=== PATIENT | male | born 1960 | race Caucasian/White ===

== ENCOUNTER 2019-03-25 20:26 | Emergency (ER) | payer SELFPAY ==
[2019-03-25 21:48] LABS: #Basophils 0.1 thou/uL (0.0-0.2); #Eosinphils 0.3 thou/uL (0.0-0.7); #Lymphocytes 1.4 thou/uL (1.20-3.40); #Monocytes 0.7 thou/uL (0.11-0.59); #Neutrophils 7.6 thou/uL (1.40-6.50); %Basophils 0.8 % (0.0-1.0); %Monocytes 6.5 % (0.0-10.0); %Neutrophils 75.7 % (42.0-75.0); Hemoglobin 15.1 g/dL (14.0-18.0); Mean Corpuscular HGB CONC 31.9 g/dL (32.0-36.0); Mean Corpuscular Hemoglobin 27.9 pg (27.0-31.0); Mean Corpuscular Volume 87.6 fL (78.0-98.0); Mean Platelet Volume 7.7 fL (7.4-10.4); Platelet Count 229 thou/uL (130-400); RBC Distribution Width 12.2 % (11.5-14.5); Red Blood Cell (RBC) Count 5.42 mill/uL (4.70-6.10)
--- NOTE | 2019-03-25 21:49 | RAD ---
EXAM: Portable chest PROVIDED CLINICAL HISTORY: Chest pain COMPARISON: 06/12/2014 FINDINGS: Cardiac and mediastinal silhouette is unchanged in appearance. Median sternotomy changes are again se en. No focal consolidation, pleural fluid or pneumothorax evident. IMPRESSION: No evidence for an acute cardiopulmonary process.
[2019-03-25 22:13] LABS: ALT (SGPT) 19 U/L (8-55); AST (SGOT) 19 U/L (5-34); Albumin 4.1 g/dL (3.5-5.0); Alkaline Phosphatase 85 U/L (40-150); Anion Gap 16 mmol/L (10-20); BUN (Urea Nitrogen) 24 mg/dL (8.4-25.7); Bilirubin, Total 0.4 mg/dL (0.2-1.2); Calc. Creatinine Clearance 0 mL/min (70-130); Calcium 9.2 mg/dL (7.8-10.44); Carbon Dioxide 22 mmol/L (22-29); Chloride 106 mmol/L (98-107); Estimated GFR-MDRD 57; Globulin 2.5 g/dL (2.4-3.5); Glucose 96 mg/dL (70-105); Potassium 4.6 mmol/L (3.5-5.1); Protein, Total 6.6 g/dL (6.0-8.3); Sodium 139 mmol/L (136-145)
--- NOTE | 2019-03-25 22:28 | ULT ---
EXAM: Limited soft tissue ultrasound with Doppler PROVIDED CLINICAL HISTORY: Right groin pain COMPARISON: None FINDINGS: Limited sonographic interrogation was performed of the right inguinal region. The arterial and venous structures in this region appear normal. Color Doppler sonography with spectral analysis demonstrates triphasic flow in the right common femoral and superficial femoral arteries. No evidence for pseudoaneurysm. IMPRESSION: Normal.
--- NOTE | 2019-03-30 13:59 | EKG ---
Test Reason : Blood Pressure : / mmHG Vent. Rate : 068 BPM Atrial Rate : 068 BPM P-R Int : 136 ms QRS Dur : 106 ms QT Int : 388 ms P-R-T Axes : 050 -37 041 degrees QTc Int : 412 ms Sinus rhythm with Premature atrial complexes Left axis deviation Abnormal ECG Confirmed by NOHEMI DUPREE M.D. ([id number]), editor school photograph ANTHONY BERG ([id number]) on 03/30/2019 1:58:55 PM Referred By: Confirmed By:NOHEMI DUPREE M.D.
== END 2019-03-26 01:24 | disposition home or self-care (01) ==
LOC: ERS 20:26
DX: R07.89 Other chest pain (principal); R10.31 Right lower quadrant pain; E78.5 Hyperlipidemia, unspecified; Z86.73 Personal history of transient ischemic attack (TIA), and cerebral infarction without residual deficits; F32.9 Major depressive disorder, single episode, unspecified; Z79.899 Other long term (current) drug therapy; Z79.82 Long term (current) use of aspirin
CPT/HCPCS: 36415; 71045; 76936; 80053; 84484; 85025; 93005

== ENCOUNTER 2019-08-15 22:25 | Emergency (ER) | payer SELFPAY ==
[2019-08-15 23:04] LABS: #Basophils 0.1 thou/uL (0.0-0.2); #Eosinphils 0.4 thou/uL (0.0-0.7); #Monocytes 0.8 thou/uL (0.11-0.59); #Neutrophils 5.7 thou/uL (1.40-6.50); %Eosinophils 4.1 % (0.0-10.0); %Lymphocytes 22.3 % (21.0-51.0); %Monocytes 8.9 % (0.0-10.0); %Neutrophils 63.7 % (42.0-75.0); Hemoglobin 14.6 g/dL (14.0-18.0); Mean Corpuscular HGB CONC 33.4 g/dL (32.0-36.0); Mean Corpuscular Hemoglobin 28.9 pg (27.0-31.0); Mean Corpuscular Volume 86.3 fL (78.0-98.0); Mean Platelet Volume 7.9 fL (7.4-10.4); Platelet Count 218 thou/uL (130-400); RBC Distribution Width 12.2 % (11.5-14.5); Red Blood Cell (RBC) Count 5.07 mill/uL (4.70-6.10); White Blood Cell (WBC) Count 8.9 thou/uL (4.8-10.8)
[2019-08-15 23:21] LABS: ALT (SGPT) 19 U/L (8-55); AST (SGOT) 15 U/L (5-34); Albumin 3.9 g/dL (3.5-5.0); Alkaline Phosphatase 88 U/L (40-110); Anion Gap 15 mmol/L (10-20); BUN (Urea Nitrogen) 22 mg/dL (8.4-25.7); Bilirubin, Total 0.4 mg/dL (0.2-1.2); CK (CPK) 245 U/L (30-200); Calc. Creatinine Clearance 0 mL/min (70-130); Calcium 8.9 mg/dL (7.8-10.44); Carbon Dioxide 22 mmol/L (22-29); Chloride 106 mmol/L (98-107); Estimated GFR-MDRD 70; Globulin 2.4 g/dL (2.4-3.5); Glucose 101 mg/dL (70-105); Potassium 3.9 mmol/L (3.5-5.1); Protein, Total 6.3 g/dL (6.0-8.3); Sodium 139 mmol/L (136-145)
--- NOTE | 2019-08-15 23:26 | RAD ---
Exam: Chest one view HISTORY:Chest pain Comparison: 03/25/2019 FINDINGS: Cardiac silhouette:Cardiomegaly. Sternotomy wires are noted. Aorta: Unremarkable Pulmonary vessels: Normal Costophrenic angles: Clear LUNGS: No masses or consolidation. Pneumothorax: None Osseous abnormalities: None IMPRESSION: No acute cardiopulmonary process. Cardiomegaly. No evidence of congestive heart failure.
== END 2019-08-16 00:45 | disposition home or self-care (01) ==
LOC: ERS 22:25
DX: R07.9 Chest pain, unspecified (principal); E78.5 Hyperlipidemia, unspecified; I25.2 Old myocardial infarction; Z79.899 Other long term (current) drug therapy
CPT/HCPCS: 36415; 71045; 80053; 82550; 84484; 85025; 93005

== ENCOUNTER 2019-09-21 07:40 | Inpatient (IN) | payer OTHER, SELFPAY ==
--- NOTE | 2019-09-21 08:04 | RAD ---
XR Chest 1 View Portable History: Chest pain Comparison: Radiograph August 15, 2019 Findings: Heart size is enlarged. Mild pulmonary venous congestion. No pneumothorax. No effusion. No confluent airspace consolidation. Impression: No acute intrathoracic abnormality.
[2019-09-21 08:19] LABS: #Basophils 0.1 thou/uL (0.0-0.2); #Eosinphils 0.2 thou/uL (0.0-0.7); #Lymphocytes 0.9 thou/uL (1.20-3.40); #Monocytes 0.4 thou/uL (0.11-0.59); %Basophils 0.9 % (0.0-1.0); %Eosinophils 2.8 % (0.0-10.0); %Lymphocytes 13.7 % (21.0-51.0); %Monocytes 6.1 % (0.0-10.0); %Neutrophils 76.6 % (42.0-75.0); Hemoglobin 15.1 g/dL (14.0-18.0); Mean Corpuscular HGB CONC 32.8 g/dL (32.0-36.0); Mean Corpuscular Hemoglobin 28.6 pg (27.0-31.0); Mean Corpuscular Volume 87.2 fL (78.0-98.0); Mean Platelet Volume 8.2 fL (7.4-10.4); Platelet Count 190 thou/uL (130-400); RBC Distribution Width 12.2 % (11.5-14.5); White Blood Cell (WBC) Count 6.6 thou/uL (4.8-10.8)
[2019-09-21 08:43] LABS: ALT (SGPT) 12 U/L (8-55); AST (SGOT) 12 U/L (5-34); Albumin 3.7 g/dL (3.5-5.0); Alkaline Phosphatase 70 U/L (40-110); Anion Gap 13 mmol/L (10-20); BUN (Urea Nitrogen) 16 mg/dL (8.4-25.7); Bilirubin, Total 0.6 mg/dL (0.2-1.2); Calc. Creatinine Clearance 0 mL/min (70-130); Calcium 8.9 mg/dL (7.8-10.44); Carbon Dioxide 22 mmol/L (22-29); Chloride 108 mmol/L (98-107); Estimated GFR-MDRD 85; Globulin 2.5 g/dL (2.4-3.5); Glucose 141 mg/dL (70-105); Potassium 3.9 mmol/L (3.5-5.1); Protein, Total 6.2 g/dL (6.0-8.3); Sodium 139 mmol/L (136-145)
--- NOTE | 2019-09-21 09:21 | CT ---
CT Brain WO Con History: Stroke Comparison: CT brain 2014 Findings: No acute hemorrhage or loss of mccoy-white matter differentiation. Small bilateral lacunar h ypodensities are similar. No midline shift. No mass effect. Calvarium is intact. Impression: No acute hemorrhage. No evidence for infarction, although hyperacute infarct can be occul t on brain CT. Code CR
[2019-09-21 09:37] LABS: Prothrombin Time 13.6 SEC (12.0-14.7)
[2019-09-21 09:38] LABS: PTT 34.9 SEC (22.9-36.1)
--- NOTE | 2019-09-21 09:59 | CT ---
CT Aortic Dissection Protocol History: Chest pain Comparison: None. Findings: CT angiogram of the chest and abdomen performed after the intravenous ministration of contr ast. 3-D rendering provided. No pericardial effusion. The aortic contour is nonaneurysmal. Change in hepatic attenuation difference foot appears be a thrombus within the right portal vein. Alt temi this could be sequelae of inflow artifact, the changes in hepatic attenuation difference suggests otherwise. Spleen, pancreas, adrenal glands are unremarkable. 3 x 6 mm calculus superior pole left kidney. Punct ate interpolar left renal calculus. 2 mm calculi within the interpolar and superior pole right kidney, a total of 2 superior pole right kidney. 2 mm calculus inferior pole right kidney. No ureteral calculi appreciated. No perinephric stranding. Bilateral L5 pars interarticularis defects with a 3 mm anterolisthesis. No retroperitoneal periaortic adenopathy. Lungs are clear. No consolidation. No acute displaced rib fracture. Multiple midline sternotomy wires. Visualized clavicles are intact. Impression: 1. No aneurysmal dilatation of the aorta nor evidence of dissection. 2. Transient hepatic attenuation difference of the right lobe liver relative to the left with possibl e incomplete thrombus in the right portal vein. Given the transient hepatic attenuation difference, inflow artifact is felt less likely. A nonemergent follow-up CT of the abdomen and pelvis in the port al venous phase may be beneficial. 3. Nonobstructive bilateral renal calculi. 4. Clear lungs without evidence for pneumonia.
--- NOTE | 2019-09-21 10:11 | CT ---
INDICATION: Left-sided deficit. Can't raise eyebrows. COMPARISON: None. TECHNIQUE: CT angiogram of the head and neck are performed in the axial plane. Three-dimensional reformatted yony ges are submitted for interpretation. FINDINGS: CTA OF THE HEAD WITH AND WITHOUT CONTRAST: POSTCONTRAST CT OF BRAIN: Pathologic enhancement: No pathologic enhancement the brain. Postcontrast soft tissue neck CT: Sinuses: Mild mucosal thickening of the paranasal sinuses, At the level of maxillary sinus. Orbits: Bilateral ocular lenses are appropriately located. Both globes are intact. Retrobulbar fat is preserved. Symmetric attenuation the optic nerves and ocular rectus muscles. Salivary glands:Symmetric attenuation. Thyroid gland: Heterogeneous. Hypodense nodule in the thyroid isthmus measuring 0.9 x 0.8 cm. Lymph nodes: No evidence of lymphadenopathy by size criteria. Paraspinal muscles: Symmetric attenuation of the sternocleidomastoid muscles. Appropriate attenuation of the paraspinal muscles. Cervical spine:Vertebral body height is maintained. No fracture. No significant central canal stenosi s or significant neural foraminal narrowing. Limited evaluation by technique. Upper mediastinum and lung apices: No acute abnormal. CTA OF THE NECK WITH CONTRAST: Aorta: Appropriate enhancement and luminal diameter. Common origin of the innominate artery and left carotid artery. Right carotid artery: Carotid artery origin, innominate artery, common carotid, carotid bifurcation a nd internal carotid artery have appropriate enhancement and luminal diameter. Medial deviation internal carotid artery is noted. Minimal calcified plaque in the carotid bifurcation and proximal in ternal carotid artery. Left carotid: Common carotid artery, carotid bifurcation and internal carotid artery have appropriate enhancement and luminal diameter. There is short segment mild stenosis, based upon NASCET criteria involving the left carotid bifurcation and proximal internal carotid artery. Subclavian arteries:Symmetric and patent. Vertebral arteries:Patent throughout their course in the neck. Vertebral arteries are essentially cod ominant. Note, left vertebral artery originates directly from the arch. CTA OF THE BRAIN: Intracranial internal carotid arteries:Symmetric enhancement and luminal diameter. Atherosclerosis in both cavernous segments and paraclinoid segments without significant narrowing. Anterior circulation: Symmetric enhancement and luminal diameter of the A1 segments, M1 segments, pro ximal A2 segments and proximal MCA branches. Intracranial vertebral arteries: Centrally patent and symmetric. Bilateral PICA artery origins are un remarkable. Posterior circulation: Both vertebral arteries supply a normal appearing basilar artery. Bilateral P1 segments have appropriate enhancement and luminal diameter. IMPRESSION: 1. No hemodynamically significant stenosis, occlusion or aneurysmal formation. 2. Additional findings as above. 3. Results study discussed with Dr. Soliman 09/21/2019 at 10:10 AM Code CR Transcribed Date/Time: 09/21/2019 10:25 AM
[2019-09-21] MEDS ORDERED: Iopamidol-370 76% 500 ML 1 ML ONE (11:25)
[2019-09-21] MEDS ORDERED: Docusate 100 MG CAP PO PRN (12:02)
[2019-09-21] MEDS ORDERED: niCARdipine 25 MG in Sodium Chloride 0.9% 250 ML 250 ML IVPB PRN (12:02)
[2019-09-21] MEDS ORDERED: Labetalol HCl 100 MG/20 ML VIAL SLOW IVP PRN (12:02)
[2019-09-21] MEDS: Sodium Chloride 0.9% 1,000 ML IV SCH ×2 (12:40→19:51)
[2019-09-21] MEDS ORDERED: hydrALAZINE 20 MG/ML VIAL SLOW IVP PRN (13:24)
--- NOTE | 2019-09-21 13:34 | PDOC.HHP ---
Hospitalist HPI - History of Present Illness chest pain and worsening left sided weakness History of Present Illness: 59 year old male with a medical history of CABG (2010) and CVA presented with chest pain. Per patient the pain was mid-left sternum, aching-like, and was ongoing for two hours prior to arrival to the ED. Per ED physician, during workup, patient complained about worsening left sided weakness and on exam, was found to have left sided hemiplegia and gaze palsy. ED Course: CT head showed no intracrandial bleed or process, and tPA was administered. The patient was admitted to the CCU for post-tPA monitoring. Hospitalist ROS - Review of Systems Constitutional: denies: fever, chills, sweats, weakness, malaise, other Respiratory: denies: cough, dry, shortness of breath, hemoptysis, SOB with excertion, pleuritic pain, sputum, wheezing, other Cardiovascular: reports: chest pain. denies: palpitations, orthopnea, paroxysmal noc. dyspnea, edema, light headedness Gastrointestinal: denies: nausea, vomiting, abdominal pain, diarrhea, constipation, melena, hematochezia, other Genitourinary: denies: dysuria, frequency, incontinence, hematuria, retention, other Musculoskeletal: denies: neck pain, shoulder pain, arm pain, back pain, hand pain, leg pain, foot pain, other Neurological: reports: weakness, numbness. denies: change in speech, confusion , seizures Other: baseline left hemiparesis but patient complains about increased weakness and new numbness on entire left side of face and body - Medication Medications: Active Medications Generic Name Dose Route Start Last Admin Trade Name Freq PRN Reason Stop Dose Admin Sodium Chloride 1,000 mls @ 100 mls/hr 09/21/19 12:02 09/21/19 12:40 Normal Saline 0.9% IV 1,000 mls .Q10H JAVED Administration Hospitalist History - Past Medical History Source: patient Cardiac: reports: CAD, [place] Pulmonary: reports: no pertinent history [employer]: reports: CVA Gastrointestinal: reports: no pertinent history Heme/Onc: reports: no pertinent history Hepatobiliary: reports: no pertinent history Psych: reports: no pertinent history Musculoskeletal: reports: no pertinent history Rheumatologic: reports: no pertinent history Infectious Disease: reports: no pertinent history ENT: reports: no pertinent history Renal/: reports: no pertinent history Endocrine: reports: no pertinent history Dermatology: reports: no pertinent history - Past Surgical History Past Surgical History: reports: CABG - Family History Family History: reports: hypertension - Social History Smoking Status: Never smoker Alcohol: reports: None Drugs: reports: none Living Situation: Homeless - Exam General Appearance: awake alert General - other findings: in apparent distress, tearful Eye - other findings: oculomotor movements intact; no gaze palsy Heart: no murmur, normal peripheral pulses Heart - other findings: irregularly irregular rate with frequent extra beats Respiratory: CTAB, no wheezes, no rales, no ronchi, normal chest expansion, no tachypnea, normal percussion Gastrointestinal: soft, non-tender, non-distended, normal bowel sounds, no palpable masses, no hepatomegaly, no splenomegaly, no bruit Extremities: no cyanosis, no clubbing, no edema Neurological: hemiplegia. negative: facial droop, speech deficit, vision deficit Neurological - other findings: no facial motor defects; left sided hemiparaesis , biceps and quadriceps 3/6 Psychiatric: oriented to person, oriented to place, oriented to time Psychiatric - other findings: tearful Hospitalist Results - Labs Result Diagrams: 09/21/19 08:08 09/21/19 08:08 Lab results: WBC 6.6 thou/uL (4.8-10.8) 09/21/19 08:08 Hgb 15.1 g/dL (14.0-18.0) 09/21/19 08:08 Hct 46.2 % (42.0-52.0) 09/21/19 08:08 MCV 87.2 fL (78.0-98.0) 09/21/19 08:08 Plt Count 190 thou/uL (130-400) 09/21/19 08:08 Neutrophils % 76.6 % (42.0-75.0) H 09/21/19 08:08 Sodium 139 mmol/L (136-145) 09/21/19 08:08 Potassium 3.9 mmol/L (3.5-5.1) 09/21/19 08:08 Chloride 108 mmol/L (98-107) H 09/21/19 08:08 Carbon Dioxide 22 mmol/L (22-29) 09/21/19 08:08 BUN 16 mg/dL (8.4-25.7) 09/21/19 08:08 Creatinine 0.91 mg/dL (0.7-1.3) 09/21/19 08:08 Glucose 141 mg/dL (70-105) H 09/21/19 08:08 Calcium 8.9 mg/dL (7.8-10.44) 09/21/19 08:08 Total Bilirubin 0.6 mg/dL (0.2-1.2) 09/21/19 08:08 AST 12 U/L (5-34) 09/21/19 08:08 ALT 12 U/L (8-55) 09/21/19 08:08 Alkaline Phosphatase 70 U/L (40-110) 09/21/19 08:08 Troponin I Less than 0.010 ng/mL (< 0.028) 09/21/19 08:08 Serum Total Protein 6.2 g/dL (6.0-8.3) 09/21/19 08:08 Albumin 3.7 g/dL (3.5-5.0) 09/21/19 08:08 - Radiology Interpretation CT scan - head Status: image reviewed by tn Hospitalist H&P A/P - Problem (1) Ischemic stroke diagnosed during current admission Code(s): I63.9 - CEREBRAL INFARCTION, UNSPECIFIED Status: Acute Assessment and Plan: initially presented for chest pain; EKG showing ectopic atrial rhythm and bradycardia -during ED stay, developed symptoms c/w stroke -CTH shows no acute bleed -administered TPA -admit to CCU for close monitoring -repeat CTH -started statin; will start aspirin and plavix 24 hours after tPA -retain blood pressure <180/105; considering patient bradycardic prefer using hydralazine rather than calicum channel or beta blockers to reduce blood pressure (2) Coronary atherosclerosis of [place] coronary artery Code(s): I25.10 - ATHSCL HEART DISEASE OF [place] CORONARY ARTERY W/O ANG PCTRS Status: Acute Qualifiers: [place] vs. transplanted heart: [place] heart Associated angina: with stable angina Qualified Code(s): I25.118 - Atherosclerotic heart disease of [place] coronary artery with other forms of angina pectoris Assessment and Plan: CABG in 2010 -patient did not answer whether he was taking medications; no medication in external EMR records -start on statin for stroke -when discharged, will set f/u with cardiology
--- NOTE | 2019-09-21 14:58 | CON ---
DATE OF CONSULTATION: HISTORY OF PRESENT ILLNESS: This is a 59-year-old obese gentleman, 95 kg, presented to the ER with chest pain, left leg and left arm weakness and facial drooping. He apparently had a previous TIA in 2010 following a bypass surgery. He now lives in the [facility], works in the kitchen washing dishes. 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 He is seeing [place] [facility] for routine care. He was given apparently a tPA in the ER, now in the ICU. He said he is feeling better, still got some slurred speech. Still got some weakness on his left side. Denies any tobacco or alcohol abuse at this time. PAST MEDICAL HISTORY: Previous TIA, hypertension, coronary artery disease, ID, lipidemia, high cholesterol, depression. PREVIOUS SURGERIES: Bypass surgery. HOME MEDICATION: 1. Simvastatin 40. 2. Lisinopril 2.5. 3. Plavix 75. 4. Aspirin 81. REVIEW OF SYSTEMS: Unremarkable. PHYSICAL EXAMINATION: VITAL SIGNS: Temperature 98, blood pressure 130/75, saturation 100%, respiratory rate 18, pulse 80. CHEST: Decreased breath sounds, no wheezing. CARDIAC: Normal S1, S2. No gallops. ABDOMEN: No masses. LABORATORY DATA: Lytes are normal. White count 6000, H and H unremarkable. CT brain negative. CT angio chest reveals no significant stenosis or occlusion. CT chest dissection protocol was negative. Chest x-ray is clear. IMPRESSION: 1. Left-sided weakness, status post tPA, negative CT chest dissection, negative CT angio of neck, negative CT brain. 2. Coronary artery disease, high cholesterol. PLAN: 1. Pulmonary cruz, continue present treatment. We will follow while in the ICU. 2. Early ambulation with PT. Consultation note, 70 minutes, 50% direct patient care. Job ID: [id number]
[2019-09-21 19:29] VITALS: BMI 29.1
[2019-09-21] MEDS: Atorvastatin Calcium 40 MG TAB PO SCH (19:51)
--- NOTE | 2019-09-22 07:51 | CT ---
PRELIMINARY REPORT/[facility]/EMERGENCY AFTER HOURS PROCEDURE EXAM: CT Head Without Intravenous Contrast. CLINICAL HISTORY: F/u CVA; s/p t-PA COMPARISON: CT\SR - CT BRAIN WO CON - 09/21/2019 09:11 AM CONTACT CENTER DIRECTOR FINDINGS: BRAIN: No acute intracranial hemorrhage, mass-effect, or midline shift. No CT evidence of acute infar ct in a large vascular territory. Nonspecific white matter hypoattenuation suggesting chronic age-related small vessel changes. VENTRICLES: Prominent in size, suggesting age-related involution. SINUSES AND MASTOIDS: Mild sinus mucosal thickening. IMPRESSION: No acute intracranial abnormality. ELECTRONICALLY SIGNED BY: Rocael Julian MD Sep 22, 2019 5:17:02 AM CONTACT CENTER DIRECTOR This report is intended for review by the ordering physician only, in accordance of law. If you recei ve this report in error, please call [facility] at [phone]. FINAL REPORT CT Brain WO Con History: Follow-up CVA Comparison: CT brain prior day Findings: No acute hemorrhage or infarct. Impression: Findings and impression are concordant with the preliminary report. Transcribed Date/Time: 09/22/2019 8:14 AM
[2019-09-22] MEDS: Sodium Chloride 0.9% 1,000 ML IV SCH ×2 (08:32→17:17)
[2019-09-22] MEDS ORDERED: Communication Order-Pharmacy FS ONE (09:00)
--- NOTE | 2019-09-22 09:32 | PRG ---
DATE OF SERVICE: 09/22/2019 SUBJECTIVE: A 59-year-old gentleman, status post tPA for left-sided CVA. He is better. OBJECTIVE: VITAL SIGNS: Pulse 52, blood pressure 112/60, saturations 100%, respiratory rate 20. CHEST: No wheezing or crackles. CARDIAC: Normal S1 and S2. ABDOMEN: No gallop or mass. IMAGING STUDIES: CT brain done today shows no evidence of any hemorrhage. IMPRESSION: Cerebrovascular accident, status post tPA, carotid disease. PLAN: Per , he is going to be transferred back out of the ICU. Pulmonary will follow at a distance. Job ID: [id number]
--- NOTE | 2019-09-22 11:05 | CON ---
DATE OF CONSULTATION: 09/22/2019 CHIEF COMPLAINT: Acute left-sided weakness. HISTORY OF PRESENT ILLNESS: The patient is a 59-year-old man with multiple social issues. 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 He was brought into the hospital with these symptoms and was given IV tPA for stroke. At this time, he has improved definitely, but still complains of left-sided weakness. He has been on Plavix and aspirin since his previous stroke in 2010. PAST MEDICAL HISTORY: Positive for coronary artery disease, CVA in 2010, and he also reports prior history of cardiac arrest and revival in 2010. He has hypertension as well. HOME MEDICATIONS: He takes Plavix and aspirin for stroke prophylaxis at home on a daily basis. PAST SURGICAL HISTORY: Coronary artery bypass graft. SOCIAL HISTORY: He does live in a homeless place. He has 2 children, daughter and son, who lives out of here. His stepdaughter stays locally, and works at [facility] [employer]. He has not been working since 2014. He used to work in [employer], and then also worked at a [employer] in [place] after which he stopped working, he was unable to work due to his stroke and him having left-sided weakness on and off. FAMILY HISTORY: Mother had cancer. On the maternal side of the family, many members had cancer. His father is unknown. He has one daughter and a son, both are healthy. REVIEW OF SYSTEMS: PULMONARY: Negative for shortness of breath. GI: Negative for nausea, vomiting, or diarrhea. CHEST AND CARDIAC: Positive for chest pain. NEUROLOGICAL: Positive for numbness and weakness on the left side. HEMATOLOGICAL: Negative for bleeding diathesis. DERMATOLOGIC: Negative for skin rash. OPHTHALMOLOGIC: Negative for any vision problems. IMAGING STUDIES: His MRI is currently pending. CT head was negative. CT angio was negative for any acute vascular occlusive lesions. LABORATORY DATA: His lab workup white count 6.6, hemoglobin 15.1, hematocrit 46.2, platelet count 190. Chemistry; sodium 139, potassium 3.9, chloride 108, bicarb 22, BUN 16, creatinine 0.91, glucose 141. Liver functions within normal limits. Coagulations normal. PHYSICAL EXAMINATION: VITAL SIGNS: Temperature is 98.1, blood pressure is 114/71, heart rate is 57, O2 saturation is 100%. GENERAL APPEARANCE: Well-built, well-nourished man, who is comfortable. He has left-sided facial asymmetry. The patient has decreased hair and shiny skin distally in both feet, likely secondary to vascular issues. CHEST: Clear vesicular breathing. CARDIOVASCULAR: S1, S2 heard. No murmurs. ABDOMEN: Soft. NEUROLOGICAL: Higher intellectual functions normal. Orientation to time, place, and person. Cranial nerves, left facial weakness and numbness on the left side. He has normal hearing. Normal extraocular movements. Pupils 2 mm, reactive to light. Tongue midline. No atrophy noted. Normal elevation of palate. Motor; bulk normal, tone normal. Strength 5/5 throughout, but decreased efforts on the left side with strength, eventual assessment of 4/5. Sensory normal bilaterally. Cerebellar, normal [id number], [id number]. Deep tendon reflexes are absent. IMPRESSION: The patient is a 59-year-old man with history of coronary artery disease, coronary artery bypass graft, and prior history of cerebrovascular accident and family history of cancer, and only family member with CVA in his family is a maternal great aunt. He has not been working. He has some social stressors including having to live in a homeless facility, and his examination that showed limited effort on the left side. There might be some psychosocial issues in addition to presence of a vascular event. RECOMMENDATIONS: Please continue aspirin with Plavix, with 325 mg of aspirin plus adding statin. Please start the patient on a diet and exercise program to reduce risk factors. The patient will also need [facility] Nurse consult regarding his living situation and plan for employment in future. Please call Dr. Guillaume, if you need any further assistance. Please complete stroke workup including echocardiogram and MRI. Job ID: [id number]
[2019-09-22] MEDS ORDERED: Clopidogrel Bisulfate 75 MG TAB PO SCH (12:00)
[2019-09-22] MEDS ORDERED: Aspirin 325 mg Enteric Coated Tablet PO SCH (12:00)
[2019-09-22 12:03] LABS: #Basophils 0.1 thou/uL (0.0-0.2); #Eosinphils 0.3 thou/uL (0.0-0.7); #Lymphocytes 1.7 thou/uL (1.20-3.40); #Monocytes 0.6 thou/uL (0.11-0.59); #Neutrophils 6.1 thou/uL (1.40-6.50); %Basophils 0.7 % (0.0-1.0); %Eosinophils 3.4 % (0.0-10.0); %Lymphocytes 19.3 % (21.0-51.0); %Monocytes 6.6 % (0.0-10.0); Hemoglobin 15.6 g/dL (14.0-18.0); Mean Corpuscular HGB CONC 33.2 g/dL (32.0-36.0); Mean Corpuscular Hemoglobin 29.2 pg (27.0-31.0); Mean Corpuscular Volume 87.9 fL (78.0-98.0); Mean Platelet Volume 7.9 fL (7.4-10.4); Platelet Count 192 thou/uL (130-400); RBC Distribution Width 12.3 % (11.5-14.5); Red Blood Cell (RBC) Count 5.33 mill/uL (4.70-6.10); White Blood Cell (WBC) Count 8.7 thou/uL (4.8-10.8)
[2019-09-22 12:24] LABS: ALT (SGPT) 12 U/L (8-55); AST (SGOT) 12 U/L (5-34); Albumin 3.7 g/dL (3.5-5.0); Alkaline Phosphatase 74 U/L (40-110); Anion Gap 10 mmol/L (10-20); BUN (Urea Nitrogen) 12 mg/dL (8.4-25.7); Bilirubin, Total 0.5 mg/dL (0.2-1.2); Calc. Creatinine Clearance 125 mL/min (70-130); Calcium 8.5 mg/dL (7.8-10.44); Carbon Dioxide 23 mmol/L (22-29); Chloride 107 mmol/L (98-107); Estimated GFR-MDRD Greater than 90; Globulin 2.6 g/dL (2.4-3.5); Glucose 111 mg/dL (70-105); Potassium 4.1 mmol/L (3.5-5.1); Protein, Total 6.3 g/dL (6.0-8.3); Sodium 136 mmol/L (136-145)
[2019-09-22] MEDS ORDERED: FLU VACC QS2019-20(6MOS UP)/PF 60 MCG/0.5 ML SYRINGE IM ONE (13:00)
--- NOTE | 2019-09-22 13:21 | PDOC.HOSPP ---
- Subjective Encounter Date: 09/22/19 Encounter Time: 08:30 Subjective: No overnight events. Feeling better and stronger today, with less left sided numbness. - Objective Vital Signs & Weight: Vital Signs (12 hours) Temp Pulse Ox 09/22/19 08:00 98.1 F 09/22/19 07:00 99 09/22/19 04:00 98.2 F Weight Weight 203 lb Most Recent Monitor Data Heart Rate from ECG 57 NIBP 127/71 NIBP BP-Mean 89 Respiration from ECG 18 SpO2 100 I&O: 09/21/19 09/22/19 09/23/19 06:59 06:59 06:59 Intake Total 1919 870 Output Total 1350 500 Balance 569 370 Result Diagrams: 09/22/19 11:52 09/22/19 11:52 Radiology Reviewed by me: Yes Hospitalist ROS - Review of Systems Constitutional: denies: fever, chills, sweats, weakness, malaise, other Eyes: denies: pain, vision change, conjunctivae inflammation, eyelid inflammation, redness, other Respiratory: denies: cough, dry, shortness of breath, hemoptysis, SOB with excertion, pleuritic pain, sputum, wheezing, other Cardiovascular: denies: chest pain, palpitations, orthopnea, paroxysmal noc. dyspnea, edema, light headedness, other Gastrointestinal: denies: nausea, vomiting, abdominal pain, diarrhea, constipation, melena, hematochezia, other Neurological: reports: weakness, numbness. denies: change in speech, confusion Other: left sided weakness closer to baseline; left sided facial numbness lesser than yesterday, left extremities numbness resolved - Medication Medications: Active Medications Generic Name Dose Route Start Last Admin Trade Name Freq PRN Reason Stop Dose Admin Atorvastatin Calcium 40 mg 09/21/19 21:00 09/21/19 19:51 Lipitor PO 40 mg HS JAVED Administration Sodium Chloride 1,000 mls @ 100 mls/hr 09/21/19 12:02 09/22/19 08:32 Normal Saline 0.9% IV 1,000 mls .Q10H JAVED Administration - Exam General Appearance: NAD, awake alert Eye: PERRL, anicteric sclera ENT: normocephalic atraumatic, no oropharyngeal lesions, moist mucosa Neck: supple, symmetric, no JVD, no thyromegaly, no lymphadenopathy, no carotid bruit Heart: RRR, no murmur, no gallops, no rubs, normal peripheral pulses Respiratory: CTAB, no wheezes, no rales, no ronchi, normal chest expansion, no tachypnea, normal percussion Gastrointestinal: soft, non-tender, non-distended, normal bowel sounds, no palpable masses, no hepatomegaly, no splenomegaly, no bruit Extremities: no cyanosis, no clubbing, no edema Neurological: cranial nerve grossly intact, no weakness, no focal deficits, no new deficit Neurological - other findings: left sided mildly reduced sensation to soft touch , improved compared to yes Musculoskeletal - other findings: left sided: biceps 4/5, quadriceps 4/5; improved compared to yesterday; Psychiatric: normal affect, normal behavior, A&O x 3 Hosp A/P (1) Ischemic stroke diagnosed during current admission Code(s): I63.9 - CEREBRAL INFARCTION, UNSPECIFIED Status: Acute Plan: -s/p tPA -neurologically back to baseline -repeat CTH showing no hemorrhage -CT carotid showing no/minimal carotid stenosis -ECHO pending -continue aspirin, plavix, and statin per neurology -f/u as outpatient (2) Coronary atherosclerosis of [place] coronary artery Code(s): I25.10 - ATHSCL HEART DISEASE OF [place] CORONARY ARTERY W/O ANG PCTRS Status: Acute Qualifiers: [place] vs. transplanted heart: [place] heart Associated angina: with stable angina Qualified Code(s): I25.118 - Atherosclerotic heart disease of [place] coronary artery with other forms of angina pectoris Plan: s/p CABG in 2010 chest pain resolved no signs of ischemia on labs -continue statin for secondary prevention -restarted home lisinopril (3) Homeless single person Code(s): Z59.0 - HOMELESSNESS Status: Acute Plan: -[facility] is [facility] -very distressed on day of presentation regarding social situation -per piano case maker, will address discharge requirements on the day of discharge, likely 09/23.
[2019-09-23] MEDS: Atorvastatin Calcium 40 MG TAB PO SCH (00:02)
[2019-09-23] MEDS: Sodium Chloride 0.9% 1,000 ML IV SCH (03:04)
[2019-09-23] MEDS: Aspirin 325 mg Enteric Coated Tablet PO SCH ×2 (09:32→09:34)
[2019-09-23] MEDS: Clopidogrel Bisulfate 75 MG TAB PO SCH (09:32)
--- NOTE | 2019-09-23 13:41 | PDOC.FM ---
- Subjective Subjective: Doing well this morning. States sxs are improved with increased strength of the left side. Tolerating PO well without any dysphagia. No CP, SOB, n/v, LÓPEZ, vision changes. - Objective MAR Reviewed: Yes Vital Signs & Weight: Vital Signs (12 hours) Temp Pulse Pulse Pulse Resp BP BP 09/23/19 11:43 98.5 F 59 L 16 09/23/19 09:32 50 L 54 L 144/83 H 113/78 09/23/19 07:58 98.6 F 59 L 16 09/23/19 04:01 98.3 F 76 14 BP BP Pulse Ox 09/23/19 11:43 128/85 97 09/23/19 09:32 09/23/19 07:58 144/88 H 97 09/23/19 04:01 140/80 97 Weight Weight 92.079 kg Most Recent Monitor Data Heart Rate from ECG 57 NIBP 127/71 NIBP BP-Mean 89 Respiration from ECG 18 SpO2 100 I&O: 09/22/19 09/23/19 09/24/19 06:59 06:59 06:59 Intake Total 3612 276 3263 Output Total 1350 500 Balance 019 966 6122 Result Diagrams: 09/22/19 11:52 09/22/19 11:52 Phys Exam - Physical Examination Constitutional: NAD (In good spirits, resting comfortably) HEENT: moist MMs Neck: no nodes, supple Respiratory: no wheezing, no rales, no rhonchi, clear to auscultation bilateral Cardiovascular: RRR, no significant murmur, no rub Gastrointestinal: soft, non-tender, no distention, positive bowel sounds Musculoskeletal: no edema, pulses present 4/5 strength LUE and LLE. 5/5 on RUE and RLE. Left-facial drop Decreased sensation to left compared to right. Psychiatric: normal affect, A&O x 3 Dx/Plan (1) Ischemic stroke diagnosed during current admission Code(s): I63.9 - CEREBRAL INFARCTION, UNSPECIFIED Status: Acute (2) CAD (coronary artery disease) of bypass graft Code(s): I25.810 - ATHEROSCLEROSIS OF CABG W/O ANGINA PECTORIS Status: Chronic (3) HTN (hypertension) Code(s): I10 - ESSENTIAL (PRIMARY) HYPERTENSION Status: Chronic (4) Homeless single person Code(s): Z59.0 - HOMELESSNESS Status: Chronic - Plan Plan: 59yo homeless male with h/o HTN, TIA, CAD s/p CABG who presented with left- sided weakness now s/p tPA #Ischemic stroke s/p tPA - presented with L-sided weakness, given tPA - Repeat CT head no acute bleed post-tPA - Sxs improving on exam this morning - Neurology consulted, apprec rec, max medication management with ECHO and MRI - PT/OT/Stroke Team consulted - Recent Lipid panel and A1C with PCP, will order TSH - Echo 50-55% EF with 2/3 diastolic dysfunction - MRI pending - Cont ASA, Plavix, high intensity statin #CAD s/p CABG - s/p CABG in 2010, known to Dr. Lobato and Dr. Hurtado - Presented with CP, now resolved. No CP this AM, no signs of ischemia on labs - Statin for secondary prevention - home lisinopril as BP will tolerate #HTN - h/o symptomatic hypotension in clinic, will restart home lisinopril and monitor #Homeless - Lives at [facility] - CM consulted, apprec recs VTE: SCDs IVF: SL Diet: HH Code: Full PCP: EDWARD Senior Dispo: Admitted to stroke for CVA s/p tPA. Sxs improving. MRI Pending. PT/OT/ Speech. Anticipate hospitalization >48hours. Addendum - Attending - Attending Attestation Date/Time: 09/23/192055 I personally evaluated the patient and discussed the management with Dr. Cloud I agree with the History, Examination, Assessment and Plan documented above with any addition or exceptions noted below. Assuming care of TAMP patient inadvertently admitted to hospitalist service. Patient s/p CVA with TPA intervention for MRI.
[2019-09-23] MEDS ORDERED: Magnevist 469MG/ML 20 ML VIAL ONE (15:13)
--- NOTE | 2019-09-23 17:35 | MRI ---
Exam: Brain MRI with and without contrast HISTORY: CVA versus TIA. Left-sided weakness COMPARISON: None FINDINGS: Gradient echo sequence: No hemorrhage Calvarium: Appropriate T1 marrow signal intensity Midline brain parenchyma: Unremarkable Cerebrum:No parenchymal mass, mass effect or midline shift. Age-appropriate atrophy. Cortical mccoy-wh ite matter differentiation is preserved. Minimal T2 and FLAIR white matter hyperintensities due to chronic small vessel ischemic change Ventricles: No evidence of hydrocephalus. Sinuses and mastoid air cells: Adequate aeration Diffusion: Central arterial flow is maintained. Absent restricted diffusion. Postcontrast images: No pathologic enhancement of the brain parenchyma. Incidental developmental is v enous anomaly in the left frontal lobe IMPRESSION: 1. Absent restricted diffusion. No acute infarct 2. Minimal chronic small vessel ischemic changes white matter. 3. Age-appropriate brain volume. 4. No pathologic enhancement of the brain parenchyma.
[2019-09-23] MEDS ORDERED: Atorvastatin Calcium 40 MG TAB PO SCH (21:00)
--- NOTE | 2019-09-24 06:40 | PDOC.FM ---
- Subjective Subjective: Doing well this morning. No acute events overnight. Ambulating with PT. Strength improved. Tolerating PO well without n/v. Denies fever/chills, CP, SOB. Plans to return to [facility] [place] upon discharge. - Objective MAR Reviewed: Yes Vital Signs & Weight: Vital Signs (12 hours) Temp Pulse Resp BP Pulse Ox 09/24/19 04:00 98.4 F 60 18 150/90 H 97 09/24/19 00:00 98.2 F 63 18 163/93 H 98 09/23/19 20:49 95 09/23/19 20:00 98.2 F 47 L 18 107/70 95 Weight Weight 92.079 kg Most Recent Monitor Data Heart Rate from ECG 57 NIBP 127/71 NIBP BP-Mean 89 Respiration from ECG 18 SpO2 100 I&O: 09/22/19 09/23/19 09/24/19 06:59 06:59 06:59 Intake Total 8436 952 4012 Output Total 1350 500 Balance 932 809 5080 Result Diagrams: 09/22/19 11:52 09/22/19 11:52 EKG Reviewed by me: Yes (Tele: PAT ) Phys Exam - Physical Examination Constitutional: NAD (resting comfortably in bed) HEENT: PERRLA, moist MMs Neck: no nodes, supple Respiratory: no wheezing, no rales, no rhonchi, clear to auscultation bilateral Cardiovascular: RRR, no rub 2/6 MIL Gastrointestinal: soft, non-tender, no distention, positive bowel sounds Musculoskeletal: no edema, pulses present 4/5 strength of left UE and LE. 5/5 strength on right. Decrease sensation on L compared to R. Mild L facial droop. No dysmetria. No dysarthria. Psychiatric: normal affect, A&O x 3 Dx/Plan (1) Ischemic stroke diagnosed during current admission Code(s): I63.9 - CEREBRAL INFARCTION, UNSPECIFIED Status: Acute (2) CAD (coronary artery disease) of bypass graft Code(s): I25.810 - ATHEROSCLEROSIS OF CABG W/O ANGINA PECTORIS Status: Chronic (3) HTN (hypertension) Code(s): I10 - ESSENTIAL (PRIMARY) HYPERTENSION Status: Chronic (4) Homeless single person Code(s): Z59.0 - HOMELESSNESS Status: Chronic - Plan Plan: 59yo homeless male with h/o HTN, TIA, CAD s/p CABG who presented with left- sided weakness now s/p tPA #TIA s/p tPA - presented with L-sided weakness, concern for CVA, given tPA - Repeat CT head no acute bleed post-tPA - Sxs improving on exam this morning, 4/5 strength on left - Neurology consulted, apprec rec, max medication management with ECHO and MRI - PT/OT/Stroke Team consulted. PT rec home with home health. - Recent Lipid panel and A1C with PCP, TSH WNL - Echo 50-55% EF with 2/3 diastolic dysfunction - MRI without acute infarct, chronic ischemic changes noted. R/o CVA. - Cont ASA, Plavix, high intensity statin #CAD s/p CABG - s/p CABG in 2010, known to Dr. Lobato and Dr. Hurtado - Presented with CP, now resolved. No CP this AM, no signs of ischemia on labs - Statin for secondary prevention - home lisinopril #Paroxysmal atrial tachycardia - On tele, asx, will cont to monit #HTN - h/o symptomatic hypotension in clinic, restarted home lisinopril and monitor #Homeless - Lives at [facility] - CM consulted, apprec recs VTE: SCDs IVF: SL Diet: HH Code: Full PCP: EDWARD Senior Dispo: Admitted to stroke for CVA s/p tPA. Sxs improving. PT/OT/Speech. Anticipate discharge today pending clinical course. Addendum - Attending - Attending Attestation Date/Time: 09/24/19 9705 I personally evaluated the patient and discussed the management with Dr. Cloud I agree with the History, Examination, Assessment and Plan documented above with any addition or exceptions noted below. [facility] Arranging medication so indigent funding will cover. Has clinic f/u scheduled.
[2019-09-24] MEDS ORDERED: Lisinopril 5 MG TAB PO SCH (09:00)
[2019-09-24] MEDS ORDERED: Lisinopril 2.5 MG TAB PO SCH (09:00)
[2019-09-24] MEDS: Aspirin 325 mg Enteric Coated Tablet PO SCH (10:05)
[2019-09-24] MEDS: Clopidogrel Bisulfate 75 MG TAB PO SCH (10:05)
[2019-09-24 12:19] VITALS: TEMP 98.3
[2019-09-24 12:48] VITALS: BP 153/77
--- NOTE | 2019-09-24 21:48 | DIS ---
DATE OF ADMISSION: 09/21/2019 DATE OF DISCHARGE: 09/24/2019 RESIDENT: Narayan Cloud MD ADMITTING ATTENDING: Jd Loo MD DISCHARGE ATTENDING: Silvio Costa MD. CONSULTS: None. PROCEDURES: 1. Brain CT on 09/21/2019, demonstrating no acute hemorrhage. No evidence of infarction. 2. CT of head and neck, [place] on 09/21/2019, demonstrating no hemodynamic significant stenosis, occlusion or aneurysm formation. 3. CT aortic dissection protocol on 09/21/2019, demonstrating no aneurysmal dilation. Transient hepatic attenuation difference of the right lobe liver relative to the left with possible incomplete thrombus in the right portal vein given the transient hepatic attenuation difference and flow artifact is felt less likely. Nonobstructing bilateral renal calculi. Lungs clear without evidence of pneumonia. 4. Chest x-ray on 09/21/2019, demonstrating no acute intrathoracic abnormality. 5. Brain CT on 09/22/2019, demonstrating no acute intracranial abnormality. Study performed status post tPA. 6. Echocardiogram on 09/22/2019, demonstrating EF of 50% to 55%. Grade 2/3 diastolic dysfunction. 7. Brain MRI on 09/23/2019, demonstrating no acute infarct or restricted diffusion pattern. Minimal chronic small-vessel ischemic changes in the white matter. No pathologic enhancement of brain parenchyma. PRIMARY DIAGNOSIS: Transient ischemic attack, status post tPA. SECONDARY DIAGNOSES: 1. Coronary artery disease status post CABG in 2010. 2. Hypertension. 3. Transient paroxysmal atrial tachycardia, asymptomatic. 4. Currently homeless, living at [facility]. DISCHARGE MEDICATIONS: 1. Plavix 75 mg p.o. daily. 2. Aspirin 325 mg p.o. daily. 3. Lipitor 80 mg p.o. at bedtime. 4. Lisinopril 5 mg p.o. daily. DISCONTINUED MEDICATIONS: 1. Aspirin 81 mg p.o. daily. 2. Lisinopril 2.5 mg p.o. daily. HISTORY OF PRESENT ILLNESS AND HOSPITAL COURSE: The patient is a 59-year-old male with past medical history of coronary artery disease status post CABG in 2010 and prior CVA/TIA, who presented with chest pain to the ED. Pain was mid left sternum, aching in nature, ongoing for 2 hours prior to arrival. During the workup in the ER, he began to experience left-sided weakness and was found to have left-sided hemiplegia and a gaze palsy. CT head showed no intracranial bleed or process and thus tPA was administered. The patient was admitted to the CCU for post tPA monitoring. Once on the floor, EKG showed ectopic atrial rhythm with bradycardia. He was continued on high-intensity statin. His aspirin was increased from 81 to 325 mg p.o. daily and continued on his Plavix. Blood pressure was adequately controlled with his home lisinopril. Neurology was consulted and recommended echocardiogram and MRI for further evaluation and to maximize medical therapy. Echo and MRI results were per above. MRI results did not show any acute infarct, so likely the patient had TIA versus complete resolution of his CVA with tPA administration, however, is unlikely to have no MRI changes with true CVA. TSH was within normal limits. Records were reviewed from PCP's office and recent fasting lipid panel showed elevated total cholesterol and LDL, however, the patient was on already increased atorvastatin 80 as outpatient. Recent A1c was within normal limits. Repeat head CT 24 hours after tPA administration was performed and was negative for acute bleed, thus the patient was transferred of stroke for further monitoring. PT, OT, Stroke team were consulted to assist with therapy. The patient continued to regain strength during his hospitalization and at time of discharge was having 4 /5 strength on the left with mild left-sided facial droop nearing baseline. The patient was able to ambulate without assistance. The patient is currently homeless, so Case Management was consulted for assistance with discharge planning needs. The patient was admitted initially to Hospitalist Service and care was transferred on the second day of hospitalization to the Family Medicine Residency for further management. At the time of discharge, the patient was tolerating p.o. well without any swallowing difficulties. Strength continued to improve and he was nearing baseline. It was deemed the patient was safe for discharge with followup as an outpatient. Discharge plan was discussed with the patient as well as the patient's stepdaughter, Lena. The patient has a followup visit with their primary care physician next week. The patient voiced agreement, understanding of discharge plan to continue on his medications and to follow up as directed. DISPOSITION: Stable. DISCHARGE INSTRUCTIONS: 1. Location: Home to the [facility]. 2. Diet: Heart healthy. 3. Activity: As tolerated. 4. Followup: The patient is to follow up with primary care physician next week as previously scheduled. Job ID: [id number] [facility]ITAL[facility]
== END 2019-09-24 14:20 | disposition home or self-care (01) | DRG 63 ==
LOC: ERS 07:40 → SUATTDRO 07:40 → CCU 11:28 → 2SE 09-22 13:52
PROVIDERS: ADMIT Internal Medicine; ATTEND Internal Medicine
DX: G45.9 Transient cerebral ischemic attack, unspecified (principal); I25.10 Atherosclerotic heart disease of native coronary artery without angina pectoris; I10 Essential (primary) hypertension; I47.9 Paroxysmal tachycardia, unspecified; E78.5 Hyperlipidemia, unspecified; E78.00 Pure hypercholesterolemia, unspecified; R29.810 Facial weakness; R29.711 NIHSS score 11; F32.9 Major depressive disorder, single episode, unspecified; Z95.1 Presence of aortocoronary bypass graft; Z59.0 Homelessness; I25.2 Old myocardial infarction; Z88.0 Allergy status to penicillin
CPT/HCPCS: 36415; 36416; 70450; 70496; 70498; 70553; 71045; 71275; 72191; 74175; 80053; 84443; 84484; 85025; 85610; 85730; 93005; 93306; 96365; 96376; 99292; A9579; J2997; Q9967

== ENCOUNTER 2019-10-28 09:18 | Observation (INO) | payer OTHER, SELFPAY ==
--- NOTE | 2019-10-28 09:48 | RAD ---
Exam: Chest one view HISTORY:Chest pain Comparison: 09/21/2019 FINDINGS: Cardiac silhouette:Markedly large cardiac silhouette. Stable sternotomy wires. Aorta: Unremarkable Pulmonary vessels: Normal Costophrenic angles: Clear LUNGS: No masses or consolidation. Pneumothorax: None Osseous abnormalities: None IMPRESSION: No acute cardiopulmonary process.
[2019-10-28] MEDS ORDERED: Nitroglycerin 2% Ointment 1 INCH/1 GM Packet ONE (09:49)
[2019-10-28 10:03] LABS: #Basophils 0.1 thou/uL (0.0-0.2); #Eosinphils 0.3 thou/uL (0.0-0.7); #Lymphocytes 1.2 thou/uL (1.20-3.40); #Monocytes 0.5 thou/uL (0.11-0.59); #Neutrophils 7.4 thou/uL (1.40-6.50); %Basophils 0.8 % (0.0-1.0); %Eosinophils 2.9 % (0.0-10.0); %Lymphocytes 12.3 % (21.0-51.0); %Monocytes 5.4 % (0.0-10.0); %Neutrophils 78.5 % (42.0-75.0); Mean Corpuscular HGB CONC 32.6 g/dL (32.0-36.0); Mean Corpuscular Hemoglobin 29.2 pg (27.0-31.0); Mean Corpuscular Volume 89.5 fL (78.0-98.0); Mean Platelet Volume 8.1 fL (7.4-10.4); Platelet Count 202 thou/uL (130-400); RBC Distribution Width 12.7 % (11.5-14.5); Red Blood Cell (RBC) Count 5.14 mill/uL (4.70-6.10); White Blood Cell (WBC) Count 9.4 thou/uL (4.8-10.8)
[2019-10-28 10:18] LABS: ALT (SGPT) 20 U/L (8-55); AST (SGOT) 18 U/L (5-34); Alkaline Phosphatase 80 U/L (40-110); Anion Gap 14 mmol/L (10-20); BUN (Urea Nitrogen) 25 mg/dL (8.4-25.7); Bilirubin, Total 0.6 mg/dL (0.2-1.2); CK (CPK) 238 U/L (30-200); Calc. Creatinine Clearance 0 mL/min (70-130); Calcium 8.8 mg/dL (7.8-10.44); Carbon Dioxide 23 mmol/L (22-29); Chloride 110 mmol/L (98-107); Estimated GFR-MDRD 55; Globulin 2.5 g/dL (2.4-3.5); Glucose 125 mg/dL (70-105); Lipase 23 U/L (8-78); Potassium 4.7 mmol/L (3.5-5.1); Protein, Total 6.5 g/dL (6.0-8.3); Sodium 142 mmol/L (136-145)
--- NOTE | 2019-10-28 11:19 | PDOC.FPRHP ---
- History of Present Illness Chief Complaint: chest pain History of Present Illness: Mr. Freedman is a 59 year old homeless male that presents with the ED with a pmhx sig for CAD and CVA with residual deficits He reports that three days ago he began having left sided substernal pressure like chest pain off and on, today he has had it for the past 2 hours and it was not relieved by nitro. It does not seem to be brought on by exertion, he denies any diaphoresis, dyspnea, syncope or palpitations. He reports that this chest pain causes a tingling sensation to travel to his L foot where he feels like he is dragging it, which he reports is not normal. he denies any other weakness, sensory changes, or deficits. 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 After comparing old records and physical exam, these physical exam findings are similar to deficits in the past where stroke work up has been negative. ED Course: nitro, 1L NS - Allergies/Adverse Reactions Allergies Allergy/AdvReac Type Severity Reaction Status Date / Time Penicillins Allergy Verified 05/12/14 08:22 - Home Medications Medication Instructions Recorded Confirmed Type Clopidogrel Bisulfate [Plavix] 75 mg PO DAILY #60 tab 09/22/19 Rx Aspirin [Ecotrin Regular Strength] 325 mg PO DAILY #30 tab 09/24/19 Rx Atorvastatin Calcium [Lipitor] 80 mg PO HS #30 tab 09/24/19 Rx Lisinopril [Zestril] 5 mg PO DAILY #30 tab 09/24/19 Rx - History PMHx:CAD, HTN, CVA, HFpEF PSHx: 3v CABG, LHC in the last year with stent placement FHx: NC Social: living at [facility], denies TAD - Review of Systems General: denies: fever/chills Eyes: denies: vision changes ENT: denies: nasal congestion Respiratory: denies: cough, shortness of breath Cardiovascular: reports: chest pain. denies: palpitation, edema Gastrointestinal: reports: nausea. denies: vomiting, diarrhea Genitourinary: denies: incontinence, dysuria Skin: denies: rashes, lesions Musculoskeletal: denies: pain, tenderness Neurological: reports: numbness. denies: syncope, seizure, weakness - Vital signs 128/62, Pulse: 62, Resp: 18, O2 sat: 95 on (Room Air - Physical Exam Constitutional: NAD HEENT: normocephalic and atraumatic, grossly normal vision, grossly normal hearing, MMM Neck: FROM Chest: no-tender to palpation Heart: RRR, normal S1/S2 Lungs: CTAB, no respiratory distress Abdomen: soft, non-tender Musculoskeletal: normal structure, normal tone, ROM grossly normal Neurological: CN II-XII intact, normal sensation -Neurological: RLE 4/5, baseline Skin: no rash/lesions, good turgor Heme/Lymphatic: no unusual bruising or bleeding Psychiatric: normal mood and affect FMR H&P: Results - Labs Result Diagrams: 10/28/19 09:50 10/28/19 09:50 Lab results: WBC 9.4 thou/uL (4.8-10.8) 10/28/19 09:50 Hgb 15.0 g/dL (14.0-18.0) 10/28/19 09:50 Hct 46.0 % (42.0-52.0) 10/28/19 09:50 MCV 89.5 fL (78.0-98.0) 10/28/19 09:50 Plt Count 202 thou/uL (130-400) 10/28/19 09:50 Neutrophils % 78.5 % (42.0-75.0) H 10/28/19 09:50 Sodium 142 mmol/L (136-145) 10/28/19 09:50 Potassium 4.7 mmol/L (3.5-5.1) 10/28/19 09:50 Chloride 110 mmol/L (98-107) H 10/28/19 09:50 Carbon Dioxide 23 mmol/L (22-29) 10/28/19 09:50 BUN 25 mg/dL (8.4-25.7) 10/28/19 09:50 Creatinine 1.32 mg/dL (0.7-1.3) H 10/28/19 09:50 Glucose 125 mg/dL (70-105) H 10/28/19 09:50 Calcium 8.8 mg/dL (7.8-10.44) 10/28/19 09:50 Total Bilirubin 0.6 mg/dL (0.2-1.2) 10/28/19 09:50 AST 18 U/L (5-34) 10/28/19 09:50 ALT 20 U/L (8-55) 10/28/19 09:50 Alkaline Phosphatase 80 U/L (40-110) 10/28/19 09:50 Creatine Kinase 238 U/L (30-200) H 10/28/19 09:50 Serum Total Protein 6.5 g/dL (6.0-8.3) 10/28/19 09:50 Albumin 4.0 g/dL (3.5-5.0) 10/28/19 09:50 Lipase 23 U/L (8-78) 10/28/19 09:50 - EKG Interpretation EKG: PACs, LAD, no ST changes or Q waves FMR H&P: A/P - Problem List (1) History of CVA (cerebrovascular accident) Current Visit: Yes Status: Acute Code(s): Z86.73 - PRSNL HX OF TIA (TIA), AND CEREB INFRC W/O RESID DEFICITS (2) (HFpEF) heart failure with preserved ejection fraction Current Visit: Yes Status: Acute Code(s): I50.30 - UNSPECIFIED DIASTOLIC ( CONGESTIVE) HEART FAILURE (3) Chest pain Current Visit: No Status: Acute Code(s): R07.9 - CHEST PAIN, UNSPECIFIED (4) CAD (coronary artery disease) of bypass graft Current Visit: No Status: Chronic Code(s): I25.810 - ATHEROSCLEROSIS OF CABG W/O ANGINA PECTORIS (5) HTN (hypertension) Current Visit: No Status: Chronic Code(s): I10 - ESSENTIAL (PRIMARY) HYPERTENSION - Plan Chest pain - typical, hx of CAD, ekg/trop wnl - reported cath within a year that was stented. - trend trops, ekg/nitro prn for chest pain hx of CVA - baseline deficits, monitor HTN - bp wnl, resume home meds when rec'd - monitor HFpEF - asymptomatic at this point - monitor homelessness ppx: lovenox code: full dispo: admit to tele obs, trend trops. likely dc tomorrow FMR H&P: Upper Level - Plan Date/Time: 10/28/19 1118 I, [], have evaluated this patient and agree with findings/plan as outlined by kinesiology internship resident. Pertinent changes/additions are listed here. Addendum - Attending - Attending Attestation Date/Time: 10/28/19 [id number] I personally evaluated the patient and discussed the management with Dr. Carrera I agree with the History, Examination, Assessment and Plan documented above with any addition or exceptions noted below. 59 yo male with known CAD and recent ichemic CVA treated with TPA. Patient with residual left hemiparesis exam is unchanged from discharge assessment. Will admit r/o ACS further evaluation pending trending of troponins,EKG and prior medical record review. Patient limited historian and may have had recent heart catherization in [place].
[2019-10-28] MEDS ORDERED: Ondansetron PF 4 MG/2 ML Vial IVP PRN (12:17)
[2019-10-28] MEDS ORDERED: Acetaminophen 325 MG TAB PO PRN (12:17)
[2019-10-28] MEDS ORDERED: Lactated Ringer's 1,000 ML IV SCH (12:17)
[2019-10-28] MEDS ORDERED: Ondansetron ODT 4 MG TAB PO PRN (12:17)
[2019-10-28] MEDS ORDERED: Acetaminophen 650 MG Suppository PR PRN (12:17)
[2019-10-28] MEDS ORDERED: Nitroglycerin 0.4 MG TAB (25 Tab Bottle) PO PRN (12:17)
[2019-10-28 12:27] VITALS: BMI 34.5
[2019-10-28 17:34] LABS: Troponin I 0.014 ng/mL (< 0.028)
[2019-10-28] MEDS ORDERED: Atorvastatin Calcium 40 MG TAB PO SCH (21:00)
[2019-10-29 05:10] LABS: Anion Gap 12 mmol/L (10-20); BUN (Urea Nitrogen) 18 mg/dL (8.4-25.7); CK (CPK) 129 U/L (30-200); Calc. Creatinine Clearance 120 mL/min (70-130); Calcium 8.7 mg/dL (7.8-10.44); Carbon Dioxide 26 mmol/L (22-29); Chloride 104 mmol/L (98-107); Estimated GFR-MDRD 90; Glucose 98 mg/dL (70-105); Potassium 4.7 mmol/L (3.5-5.1); Sodium 137 mmol/L (136-145)
--- NOTE | 2019-10-29 07:14 | PDOC.FM ---
- Subjective Subjective: pt resting in bed, reports mild substernal chest pain, denies sob - Objective Vital Signs & Weight: Vital Signs (12 hours) Temp Pulse Resp BP BP Pulse Ox 10/29/19 03:30 52 L 18 117/67 97 10/28/19 23:35 98.1 F 73 20 125/66 97 10/28/19 20:00 97.8 F 61 17 125/62 97 Weight Weight 94.12 kg I&O: 10/28/19 10/29/19 10/30/19 06:59 06:59 06:59 Intake Total 1525 Balance 1525 Result Diagrams: 10/28/19 09:50 10/29/19 04:32 Phys Exam - Physical Examination Constitutional: NAD HEENT: moist MMs Neck: no JVD Respiratory: clear to auscultation bilateral Cardiovascular: RRR, no significant murmur Gastrointestinal: no distention Musculoskeletal: no edema Neurological: non-focal Psychiatric: normal affect Skin: no rash Dx/Plan (1) History of CVA (cerebrovascular accident) Code(s): Z86.73 - PRSNL HX OF TIA (TIA), AND CEREB INFRC W/O RESID DEFICITS Status: Acute (2) (HFpEF) heart failure with preserved ejection fraction Code(s): I50.30 - UNSPECIFIED DIASTOLIC (CONGESTIVE) HEART FAILURE Status: Acute (3) Chest pain Code(s): R07.9 - CHEST PAIN, UNSPECIFIED Status: Acute (4) CAD (coronary artery disease) of bypass graft Code(s): I25.810 - ATHEROSCLEROSIS OF CABG W/O ANGINA PECTORIS Status: Chronic (5) HTN (hypertension) Code(s): I10 - ESSENTIAL (PRIMARY) HYPERTENSION Status: Chronic - Plan Plan: Chest pain - typical, hx of CAD, ekg/trop wnl - reported cath within a year that was stented. - trend trops, ekg/nitro prn for chest pain - stress pending JEANMARIE - resolved elevated ck - resolved hx of CVA - baseline deficits, monitor HTN - bp wnl, resume home meds when rec'd - monitor HFpEF - asymptomatic at this point - monitor homelessness ppx: lovenox code: full dispo: dc pending stress results Addendum - Attending - Attending Attestation Date/Time: 10/29/192150 I personally evaluated the patient and discussed the management with Dr. Carrera I agree with the History, Examination, Assessment and Plan documented above with any addition or exceptions noted below.
[2019-10-29 07:46] VITALS: TEMP 98.2
[2019-10-29] MEDS ORDERED: Enoxaparin Sodium 40 MG/0.4 ML SYRINGE SC SCH (09:00)
[2019-10-29] MEDS ORDERED: Lisinopril 2.5 MG TAB PO SCH (09:00)
[2019-10-29] MEDS ORDERED: Clopidogrel Bisulfate 75 MG TAB PO SCH (09:00)
[2019-10-29] MEDS ORDERED: Aspirin 325 mg Enteric Coated Tablet PO SCH (09:00)
[2019-10-29 11:53] VITALS: BP 126/76
--- NOTE | 2019-10-29 13:03 | NM ---
MYOCARDIAL PERFUSION SCAN WITH SPECT IMAGING: HISTORY: Chest pain. TECHNIQUE/FINDINGS: Examination is performed as a 2 day study using 31.9 mCi 99m-technetium sestamibi on the stress and 3 1 mCi on the resting images. This shows a fairly normal distribution of radiopharmaceutical without s igns of ischemia or scar. WALL MOTION: Suggestion of some slight hypokinesis to the inferior wall and perhaps apex. LEFT VENTRICULAR EJECTION FRACTION: The calculated left ventricular ejection fraction is 49%. IMPRESSION: 1. No evidence of ischemic change. 2. Diminished left ventricular ejection fraction of 49%. POS: BERENICE
[2019-10-29] MEDS ORDERED: Regadenoson 0.4 MG/5 ML SYRINGE ONE (15:24)
== END 2019-10-29 16:24 | disposition home or self-care (01) ==
LOC: ERS 09:18 → 2SW 10:42
PROVIDERS: ADMIT Family Medicine; ATTEND Family Medicine
DX: R07.9 Chest pain, unspecified (principal); I25.10 Atherosclerotic heart disease of native coronary artery without angina pectoris; I11.0 Hypertensive heart disease with heart failure; I50.31 Acute diastolic (congestive) heart failure; I69.354 Hemiplegia and hemiparesis following cerebral infarction affecting left non-dominant side; I25.2 Old myocardial infarction; E78.5 Hyperlipidemia, unspecified; F32.9 Major depressive disorder, single episode, unspecified; Z59.0 Homelessness; Z79.02 Long term (current) use of antithrombotics/antiplatelets; Z79.82 Long term (current) use of aspirin; Z79.899 Other long term (current) drug therapy; Z88.0 Allergy status to penicillin; Z91.038 Other insect allergy status; Z95.1 Presence of aortocoronary bypass graft; Z95.5 Presence of coronary angioplasty implant and graft
CPT/HCPCS: 36415; 71045; 78452; 80048; 80053; 82550; 83690; 84484; 85025; 93005; 93017; 94760; 96360; 96361; A9500; G0378; J2785

== ENCOUNTER 2020-01-08 11:16 | Emergency (ER) | payer OTHER ==
[2020-01-08 12:25] LABS: #Basophils 0.1 thou/uL (0.0-0.2); #Eosinphils 0.3 thou/uL (0.0-0.7); #Lymphocytes 1.4 thou/uL (1.20-3.40); #Monocytes 0.6 thou/uL (0.11-0.59); #Neutrophils 5.6 thou/uL (1.40-6.50); %Basophils 0.7 % (0.0-1.0); %Eosinophils 3.4 % (0.0-10.0); %Lymphocytes 18.1 % (21.0-51.0); %Neutrophils 69.8 % (42.0-75.0); Hemoglobin 15.6 g/dL (14.0-18.0); Mean Corpuscular HGB CONC 33.1 g/dL (32.0-36.0); Mean Corpuscular Hemoglobin 29.8 pg (27.0-31.0); Mean Platelet Volume 8.3 fL (7.4-10.4); Platelet Count 205 thou/uL (130-400); RBC Distribution Width 12.1 % (11.5-14.5); Red Blood Cell (RBC) Count 5.22 mill/uL (4.70-6.10)
[2020-01-08 12:49] LABS: ALT (SGPT) 19 U/L (8-55); AST (SGOT) 18 U/L (5-34); Albumin 4.4 g/dL (3.5-5.0); Alkaline Phosphatase 92 U/L (40-110); Anion Gap 14 mmol/L (10-20); BUN (Urea Nitrogen) 25 mg/dL (8.4-25.7); Bilirubin, Total 0.9 mg/dL (0.2-1.2); Calc. Creatinine Clearance 0 mL/min (70-130); Calcium 9.9 mg/dL (7.8-10.44); Carbon Dioxide 24 mmol/L (22-29); Chloride 103 mmol/L (98-107); Estimated GFR-MDRD 80; Globulin 2.8 g/dL (2.4-3.5); Glucose 88 mg/dL (70-105); Potassium 4.3 mmol/L (3.5-5.1); Protein, Total 7.2 g/dL (6.0-8.3); Sodium 137 mmol/L (136-145)
[2020-01-08 13:22] LABS: PTT 31.9 SEC (22.9-36.1)
[2020-01-08 13:23] LABS: INR-International Normal Ratio 0.9; Prothrombin Time 12.6 SEC (12.0-14.7)
== END 2020-01-08 14:10 | disposition home or self-care (01) ==
LOC: ERS 11:16
DX: S30.817A Abrasion of anus, initial encounter (principal); E78.5 Hyperlipidemia, unspecified; E78.00 Pure hypercholesterolemia, unspecified; I10 Essential (primary) hypertension; I25.2 Old myocardial infarction; Z86.73 Personal history of transient ischemic attack (TIA), and cerebral infarction without residual deficits; F32.9 Major depressive disorder, single episode, unspecified; Z79.82 Long term (current) use of aspirin; Z79.899 Other long term (current) drug therapy
CPT/HCPCS: 80053; 82274; 85025; 85610; 85730; 99283

== ENCOUNTER 2020-01-10 11:43 | Outpatient (CLI) | payer OTHER ==
[2020-01-11 13:14] LABS: SARS-CoV-2 MS2 Positive; SARS-CoV-2 N Gene Negative; SARS-CoV-2 S Gene Negative; SARS-CoV-2 orf1ab Negative
== END 2020-01-10 11:44 | disposition home or self-care (01) ==
LOC: LABBT 11:43
PROVIDERS: ATTEND Internal Medicine Gastroenterology
DX: Z11.59 Encounter for screening for other viral diseases (principal); I25.10 Atherosclerotic heart disease of native coronary artery without angina pectoris; K62.5 Hemorrhage of anus and rectum; Z80.0 Family history of malignant neoplasm of digestive organs
CPT/HCPCS: 87635; U0002

== ENCOUNTER 2020-01-15 06:04 | Day surgery (SDC) | payer OTHER ==
[2020-01-10 15:57] VITALS: BMI 34.4
--- NOTE | 2020-01-15 08:58 | OP ---
DATE OF PROCEDURE: 01/15/2020 PROCEDURES PERFORMED: Colonoscopy with snare polypectomy. PREMEDICATION: Given by Anesthesiology Department. PREPROCEDURE DIAGNOSES: Recurrent rectal bleeding/hematochezia. POSTPROCEDURE DIAGNOSES: 1. Grade 1 internal hemorrhoids. 2. Transverse colon polyp and rectal polyp, status post polypectomies. 3. Mild diverticulosis coli. DESCRIPTION OF PROCEDURE: Written consents were obtained prior to procedure. After adequate sedation, rectal exam performed was normal. The endoscope was advanced to the cecum. The quality of the bowel prep was good. The cecum, ascending colon, and hepatic flexure appeared normal. In the mid transverse colon, a 4 mm sessile polyp was noted and was removed with cold snare and retrieved. The splenic flexure and descending colon appeared normal. A few scattered diverticula were noted in the sigmoid colon. In the upper rectal vault, an 8 mm sessile polyp was noted and was removed with cold snare and retrieved. Retroflexion in the rectal vault showed grade 1 internal hemorrhoids. There was no thrombosis or active bleeding seen. The instrument was then fully removed. The patient tolerated the procedure well. ASSESSMENT: 1. Grade 1 small internal hemorrhoids, source of rectal bleeding. 2. Transverse colon polyp and rectal polyp, status post polypectomies. 3. Mild diverticulosis coli. RECOMMENDATION: 1. Await biopsy results. 2. Fiber rich diet with daily fiber supplement. Job ID: [id number]
[2020-01-15] MEDS ORDERED: Lidocaine 1% PF 5 ML VIAL ONE (09:36)
[2020-01-15] MEDS ORDERED: PROPOFOL 200 MG/20 ML VIAL ONE (09:36)
[2020-01-15] MEDS ORDERED: EPHEDRINE 25 MG/5 ML SYRINGE ONE (09:36)
== END 2020-01-15 09:10 | disposition home or self-care (01) ==
LOC: SDC 06:04
PROVIDERS: ATTEND Internal Medicine Gastroenterology
PROC: 0DBP8ZZ Excision of Rectum, Via Natural or Artificial Opening Endoscopic (ICD-10-PCS; principal; 2020-01-15)
PROC: 0DBL8ZZ Excision of Transverse Colon, Via Natural or Artificial Opening Endoscopic (ICD-10-PCS; principal; 2020-01-15)
DX: K62.1 Rectal polyp (principal); K63.5 Polyp of colon; K64.8 Other hemorrhoids; K57.30 Diverticulosis of large intestine without perforation or abscess without bleeding; Z79.82 Long term (current) use of aspirin; Z79.899 Other long term (current) drug therapy; Z80.0 Family history of malignant neoplasm of digestive organs; Z88.1 Allergy status to other antibiotic agents; Z91.038 Other insect allergy status; Z95.1 Presence of aortocoronary bypass graft
CPT/HCPCS: 88305; J2001; J2704

== ENCOUNTER 2020-02-27 19:00 | Outpatient (CLI) | payer OTHER | END 2020-02-27 19:01 | disposition home or self-care (01) | LOC: SLEEPLAB 19:00 | PROVIDERS: ATTEND Family Medicine | DX: G47.33 Obstructive sleep apnea (adult) (pediatric) (principal); I10 Essential (primary) hypertension; G47.10 Hypersomnia, unspecified; G45.9 Transient cerebral ischemic attack, unspecified; G47.00 Insomnia, unspecified; I49.3 Ventricular premature depolarization; I49.1 Atrial premature depolarization | CPT/HCPCS: 95811 ==

== ENCOUNTER 2020-04-14 16:21 | Emergency (ER) | payer OTHER | END 2020-04-14 17:50 | disposition home or self-care (01) | LOC: ERS 16:21 | DX: L03.116 Cellulitis of left lower limb (principal); I25.2 Old myocardial infarction; E78.5 Hyperlipidemia, unspecified; I10 Essential (primary) hypertension; Z86.73 Personal history of transient ischemic attack (TIA), and cerebral infarction without residual deficits; F32.9 Major depressive disorder, single episode, unspecified; Z79.899 Other long term (current) drug therapy; Z79.82 Long term (current) use of aspirin | CPT/HCPCS: 99283 ==

== ENCOUNTER 2020-11-01 18:30 | Emergency (ER) | payer OTHER ==
--- NOTE | 2020-11-01 20:18 | RAD ---
LEFT KNEE FOUR VIEWS: History: Fall on ice. Knee injury. FINDINGS: Arthritic changes of the knee with degenerative changes of the medial compartment of the knee. There is osteophyte at the quadriceps tendon insertion. There is no fracture or joint effusion. IMPRESSION: No evidence of acute injury. POS: MAYA
--- NOTE | 2020-11-01 20:25 | ULT ---
LEFT LOWER EXTREMITY VENOUS DUPLEX EXAM: History: Left leg pain and swelling. FINDINGS: Real-time color doppler evaluation of the left lower extremity was performed from groin to calf. This includes evaluation of the common femoral, superficial and profunda femoral, saphenous, popliteal an d posterior tibial veins. This shows a patent deep venous system with normal compressibility and augm entation. Incidental note is made of a fluid collection 2 x 5 cm in size which is superior and latera l to the left knee. I am not certain if this related to some joint fluid or less likely, a hematoma. IMPRESSION: 1. No evidence of DVT of the left lower extremity. POS: MAYA
== END 2020-11-01 20:20 | disposition home or self-care (01) ==
LOC: ERS 18:30
DX: M25.562 Pain in left knee (principal); I87.8 Other specified disorders of veins; I25.2 Old myocardial infarction; E78.5 Hyperlipidemia, unspecified; E78.00 Pure hypercholesterolemia, unspecified; I10 Essential (primary) hypertension; Z86.73 Personal history of transient ischemic attack (TIA), and cerebral infarction without residual deficits; Z79.82 Long term (current) use of aspirin; Z79.899 Other long term (current) drug therapy; W00.0XXA Fall on same level due to ice and snow, initial encounter

== ENCOUNTER 2021-08-09 09:47 | Emergency (ER) | payer OTHER, SELFPAY | END 2021-08-09 15:30 | disposition home or self-care (01) | LOC: ERS 09:47 | DX: L03.011 Cellulitis of right finger (principal); I25.2 Old myocardial infarction; I10 Essential (primary) hypertension; E78.5 Hyperlipidemia, unspecified; E78.00 Pure hypercholesterolemia, unspecified; Z86.73 Personal history of transient ischemic attack (TIA), and cerebral infarction without residual deficits | CPT/HCPCS: 26010 ==